=== PATIENT | female | born 1975 | race African-American/Black ===

== ENCOUNTER 2017-04-07 20:41 | Emergency (ER) | payer OTHER, BC ==
[~2017-04-07 20:41] MED LIST: GLUCPH PO; ZESTRIL20 MG PO
== END 2017-04-07 21:47 | disposition home or self-care (01) ==
LOC: ER 20:41
DX: S20.219A Contusion of unspecified front wall of thorax, initial encounter (principal); M54.2 Cervicalgia; I10 Essential (primary) hypertension; E11.9 Type 2 diabetes mellitus without complications; Z79.899 Other long term (current) drug therapy; V29.00XA Motorcycle driver injured in collision with unspecified motor vehicles in nontraffic accident, initial encounter
CPT/HCPCS: 71020; 72040; 93005; 99284; A9270-GY